=== PATIENT | female | born 1945 | race Caucasian/White ===

== ENCOUNTER 2022-01-07 08:24 | Emergency (ER) | payer MEDICARE ==
[2022-01-07 09:11] LABS: BASOPHIL 0.2 % (0-2); EOSINOPHIL 0.1 % (0-7); HCT 32.9 % (37.0-47.0); HGB 10.6 g/dl (12.5-16.0); LYMPHOCYTE 5.8 % (15-48); MCHC 32.2 g/dL (32.0-36.0); MCV 83.7 fL (78.0-100.0); MONOCYTE 5.8 % (0-12); MPV 9.5 fL (6.0-9.5); NEUTROPHIL 87.4 % (41-80); NRBC 0; PLT 426 K/uL (150-400); RBC 3.93 M/uL (4.20-5.40); RDW 14.2 % (11.5-14.0)
[2022-01-07 09:36] LABS: WBC 24.1 K/uL (4.0-10.5)
[2022-01-07 09:56] LABS: ALBUMIN 2.6 g/dL (3.4-5.0); BILIRUBIN - TOTAL 0.6 mg/dL (0.2-1.0); BUN/CREAT RATIO (CALC) 11.7 RATIO; CREATININE 0.77 mg/dL (0.51-0.95); GLOBULIN (CALCULATION) 4.2 g/dL; POTASSIUM 3.5 mmol/L (3.5-5.1); TOTAL PROTEIN 6.8 g/dL (6.4-8.2)
[2022-01-07 10:51] LABS: BILIRUBIN NEGATIVE (NEGATIVE); BLOOD TRACE-INTACT Ery/uL (NEGATIVE); CLARITY CLEAR (CLEAR); COLOR YELLOW (YELLOW); GLUCOSE (U) NORMAL (NORMAL); LEUKOCYTES NEGATIVE Leu/uL (NEGATIVE); NITRITE NEGATIVE (NEGATIVE); PROTEIN NEGATIVE (NEGATIVE); SPECIFIC GRAVITY <=1.005 (1.001-1.030); UROBILINOGEN 0.2 mg/dL (0.2-1.0)
[2022-01-07 10:55] LABS: LACTIC ACID 0.9 mmol/L (0.4-1.9)
[2022-01-07] MEDS ORDERED: ONDANSETRON ODT4 MG PO (11:18)
== END 2022-01-07 11:28 | disposition home or self-care (01) ==
LOC: FER 08:24
PROVIDERS: Emergency Medicine
DX: R11.2 Nausea with vomiting, unspecified (principal); C25.9 Malignant neoplasm of pancreas, unspecified; J44.9 Chronic obstructive pulmonary disease, unspecified
CPT/HCPCS: 36415; 74022; 80053; 81001; 83605; 83690; 85025; 87040; J2405; J7030